=== PATIENT | female | born 1990 | race Caucasian/White ===

== ENCOUNTER 2021-06-25 00:01 | Emergency (ER) | payer OTHER, SELFPAY ==
[2021-06-25 00:02] VITALS: BP 156/104; PULSE 76; RESP 18; TEMP 36.8; O2SAT 99; BMI 32.9
--- NOTE | 2021-06-25 00:32 | HMH.EDDENT ---
ED Disposition Clinical Impression: Pain, dental, Infected dental caries Disposition: Home, Self-Care Condition on Discharge: Good Instructions: DI for Dental Pain Additional Instructions: use meds and see pcp for follow up Prescriptions: clindamycin HCL [Clindamycin HCl] 300 mg PO TID #30 cap Transmission Status: [id number] Ketorolac Tromethamine [Toradol 10mg tablet] 10 mg PO Q6HP PRN #10 tab MDD 40mg/day PRN Reason: Moderate To Severe Pain Transmission Status: [id number] Referrals: Edgar Feliz, [Primary Care Provider] - - Critical Care Critical Care Time: No Attestation: On 06/25/21, the high probability of a clinically significant, sudden or life threatening deterioration of the following system(s) required my full and direct attention, intervention and personal management. The time I documented below is in addition to time spent performing reported procedures but includes the following listed in this critical care notation. Medical Decision Making - Medical Records Medical records reviewed: Yes: I reviewed the patient's medical records. - Wesley Inquiry Pt receiving controlled substance: No Vital Signs: 06/25/21 00:02 Temperature 98.2 F Temperature Source Oral Pulse Rate [Right] 76 Respiratory Rate 18 Blood Pressure [Right Arm] 156/104 H Blood Pressure Mean [Right Arm] 121 02 Sat by Pulse Oximetry 99 - Lab Data Lab results reviewed: Yes: I reviewed the patient's lab results. Orders (Tests/Meds): ED MEDICATIONS Generic Name Dose Route Start Last Admin Trade Name Freq PRN Reason Stop Dose Admin Acetaminophen/Codeine Phosphate 1 magnolia 06/25/21 01:13 Acetaminophen 300mg W/Codeine 30mg Take Home Pack (6) PO 06/25/21 01:14 ONCE ONE Ceftriaxone Sodium 1 gm/ 50 mls @ 100 mls/hr 06/25/21 00:45 06/25/21 01:01 Sodium Chloride IV 07/09/21 00:44 100 mls/hr Q24H JOVANY Administration Protocol Discontinued Medications Generic Name Dose Route Start Last Admin Trade Name Freq PRN Reason Stop Dose Admin Ketorolac Tromethamine 30 mg 06/25/21 00:31 06/25/21 01:01 Ketorolac 30mg/Ml Vial IV 06/25/21 00:32 30 mg ONCE ONE Administration Methylprednisolone Sodium Succinate 125 mg 06/25/21 00:31 06/25/21 01:00 Methylprednisolone Sod Succ 125mg Vial IV 06/25/21 00:32 125 mg ONCE ONE Administration Ondansetron HCl 4 mg 06/25/21 00:31 06/25/21 01:00 Ondansetron 4mg/2ml Vial IV 06/25/21 00:32 4 mg ONCE ONE Administration Medical Decision Narrative: dental infection and will need abx and f/u with dentist Dental HPI - General Chief complaint: Dental/Oral Stated complaint: Pain in Rt side of face and neck Time Seen by Provider: 06/25/21 00:15 Mode of Arrival: Ambulatory Source of Information: Patient, Medical Record Limitations: No Limitations Description of Symptoms (Recalled from ER Triage Doc. by RN): pt c/o rt lower tooth pain since last night - History of Present Illness HPI Narrative: progressive rt lower dental pain over the last few days MD Complaint: tooth pain Onset (ago): day(s) Duration: constant Severity: moderate Context: history of dental caries Associated symptoms: ear pain Treatment prior to arrival: recent dentist visit - Related Data Home Medications Medication Instructions Recorded Confirmed omeprazole magnesium 20 mg 20 mg PO DAILY 09/10/19 12/04/19 tablet,delayed release Metoprolol Succinate 25 mg PO DAILY 12/04/19 12/04/19 Previous Rx's Medication Instructions Recorded Naproxen [Naproxen 500mg tab] 500 mg PO BIDP PRN #20 tab 12/04/19 Phenazopyridine HCl [Pyridium 200 pow PO TID #6 tab 12/04/19 200mg Tablet] Sulfamethoxazole/Trimethoprim 1 each PO BID 7 Days #14 tab 12/04/19 [Bactrim DS tablet] Ketorolac Tromethamine [Toradol 10 mg PO Q6HP PRN #10 tab MDD 06/25/21 10mg tablet] 40mg/day clindamycin HCL [Clindamycin HCl] 3
[2021-06-25 01:44] VITALS: BP 135/82; PULSE 72; RESP 16; TEMP 36.8; O2SAT 99
== END 2021-06-25 01:45 | disposition home or self-care (01) ==
PROVIDERS: Emergency Provider Emergency Medicine; PCP Family Medicine
DX: K04.7 Periapical abscess without sinus (principal); K05.10 Chronic gingivitis, plaque induced; F17.210 Nicotine dependence, cigarettes, uncomplicated; K02.9 Dental caries, unspecified
CPT/HCPCS: 96365; 96375; 99281; J2405

== ENCOUNTER 2021-09-04 19:25 | Emergency (ER) | payer OTHER, SELFPAY ==
[2021-09-04 20:40] VITALS: BP 158/104; PULSE 105; RESP 18; TEMP 36.9; O2SAT 99; BMI 33.0
--- NOTE | 2021-09-04 20:52 | HMH.EDUTC ---
[facility] [place] Disposition Clinical Impression: Viral syndrome, Exposure to COVID-19 virus Pharyngitis Qualifiers: Pharyngitis/tonsillitis etiology: unspecified etiology Qualified Code(s): J02.9 - Acute pharyngitis, unspecified Disposition: Home, Self-Care Condition on Discharge: Good Instructions: DI for COVID-19 (Suspected or Confirmed ), Preventing the Spread of Coronavirus Discharge Instructions Additional Instructions: Drink plenty of fluids. Take tylenol or ibuprofen for pain or fever. Take the medications as directed. Follow up with your regular doctor. GO TO THE ER FOR ANY WORSENING SYMPTOMS Quarantine until you know the results of your covid-19 test. If it is positive, the health department should call you and give you further instructions about your length of Quarantine and other things. Notify your school or workplace of your results and follow their instructions regarding return to work/school. Prescriptions: Brompheniramine/Pseudoephed/Dm [Bromfed Dm Cough Syrup] 5 ml PO Q6HP PRN #240 ml PRN Reason: Cough Transmission Status: Received by [email or web address] #[id number] Amoxicillin [Amoxicillin 500mg Tab] 500 mg PO TID 10 Days #30 tab Transmission Status: Received by [email or web address][id number] Ondansetron [Zofran 4mg ODT] 4 mg PO DAILYP PRN #12 tab PRN Reason: Nausea Transmission Status: Received by [email or web address] #[id number] Referrals: Edgar Feliz DO [Primary Care Provider] - Time of Disposition: 21:12 Medical Decision Making - Medical Records Medical records reviewed: No: I reviewed the patient's medical records. - Wesley Inquiry Pt receiving controlled substance: No Vital Signs: 09/04/21 20:40 09/04/21 21:13 Temperature 98.5 F 98.5 F Temperature Source Oral Pulse Rate 105 H Pulse Rate [Right Brachial] 105 H Respiratory Rate 18 18 Blood Pressure 158/104 H Blood Pressure [Right Arm] 158/104 H Blood Pressure Mean [Right Arm] 122 Blood Pressure Source [Right Arm] Automatic Cuff Blood Pressure Position [Right Arm] Sitting 02 Sat by Pulse Oximetry 99 Oxygen Delivery Method Room Air - Lab Data Lab results reviewed: Yes: I reviewed the patient's lab results. Lab Results 09/04/21 21:12: Strep Scn Rapid Clinic Negative Orders (Tests/Meds): ORDERS Category Date Time Status Covid-19 Nasal PCR ([facility]) Routine Lab 09/04/21 20:43 Received Strep Screen Confirmation Stat Micro 09/04/21 21:12 Received [facility] HPI - General Stated complaint: Diarrhea, sore throat, covid exposed Time Seen by Provider: 09/04/21 20:52 - History of Present Illness Provider Complaint: She c/o sore throat and feeling bad for the past 2 days. She was exposed to covid-19 about 6 days ago. She has nausea and diarrhea also. - Related Data Home Medications Medication Instructions Recorded Confirmed omeprazole magnesium 20 mg 20 mg PO DAILY 09/10/19 12/04/19 tablet,delayed release Metoprolol Succinate 25 mg PO DAILY 12/04/19 12/04/19 Previous Rx's Medication Instructions Recorded Naproxen [Naproxen 500mg tab] 500 mg PO BIDP PRN #20 tab 12/04/19 Phenazopyridine HCl [Pyridium 200 pow PO TID #6 tab 12/04/19 200mg Tablet] Sulfamethoxazole/Trimethoprim 1 each PO BID 7 Days #14 tab 12/04/19 [Bactrim DS tablet] Ketorolac Tromethamine [Toradol 10 mg PO Q6HP PRN #10 tab MDD 06/25/21 10mg tablet] 40mg/day clindamycin HCL [Clindamycin HCl] 300 mg PO TID #30 cap 06/25/21 Amoxicillin [Amoxicillin 500mg Tab] 500 mg PO TID 10 Days #30 tab 09/04/21 Brompheniramine/Pseudoephed/Dm 5 ml PO Q6HP PRN #240 ml 09/04/21 [Bromfed Dm Cough Syrup] Ondansetron [Zofran 4mg ODT] 4 mg PO DAILYP PRN #12 tab 09/04/21 Allergies Allergy/AdvReac Type Severity Reaction Status Date / Time No Known Allergies Allergy Verified 09/04/21 21:04 [facility] History - Hepatitis A Screen Attestation statement:: This patient has been screened for Hepatitis A risk factors. I have reviewed the
[2021-09-04 21:13] VITALS: BP 158/104; PULSE 105; RESP 18; TEMP 36.9; O2SAT 99
[2021-09-04 21:13] LABS: UTC Strep Screen (Rapid) Negative (Negative)
== END 2021-09-04 21:24 | disposition home or self-care (01) ==
PROVIDERS: Emergency Provider Nurse Practitioner Family; PCP Family Medicine
DX: B34.9 Viral infection, unspecified (principal); Z20.822 Contact with and (suspected) exposure to COVID-19; I10 Essential (primary) hypertension; F17.210 Nicotine dependence, cigarettes, uncomplicated
CPT/HCPCS: 87880; 99203; C9803; G0463; U0003; U0005

== ENCOUNTER → 2021-12-29 15:38 | Outpatient (CLI) | payer OTHER, SELFPAY | PROVIDERS: Visit Provider Nurse Practitioner | DX: Z20.822 Contact with and (suspected) exposure to COVID-19 (principal) | CPT/HCPCS: C9803; U0003; U0005 ==

== ENCOUNTER 2022-01-31 09:20 | Emergency (ER) | payer OTHER, SELFPAY ==
[2022-01-31 10:56] VITALS: BP 138/96; PULSE 97; RESP 16; TEMP 36.9; O2SAT 95; BMI 32.1
--- NOTE | 2022-01-31 10:58 | HMH.EDUTC ---
[facility] [place] Clinical Impression: Viral syndrome, Bronchitis Disposition: Home, Self-Care Condition on Discharge: Good Instructions: DI for COVID-19 (Suspected or Confirmed ), Preventing the Spread of Coronavirus Discharge Instructions Additional Instructions: Drink plenty of fluids. Take tylenol or ibuprofen for pain or fever. Take the medications as directed. Follow up with your regular doctor. GO TO THE ER FOR ANY WORSENING SYMPTOMS Quarantine until you know the results of your covid-19 test. Notify your school or workplace of your results and follow their instructions regarding return to work/school. Prescriptions: Brompheniramine/Pseudoephed/Dm [Bromfed Dm Cough Syrup] 5 ml PO Q6HP PRN #240 ml PRN Reason: Cough Transmission Status: Received by [facility]/pharmacy #[id number] Ondansetron [Zofran 4mg ODT] 4 mg PO Q8HP PRN #20 tab PRN Reason: Nausea Transmission Status: [id number] Azithromycin [Z-Juaquin 250mg Tab*] 250 mg PO UD DOSE PK #6 tab Transmission Status: Received by [facility]/pharmacy #[id number] Referrals: Edgar Feliz DO [Primary Care Provider] - Forms: Work/School Release Time of Disposition: 12:05 Medical Decision Making - Medical Records Medical records reviewed: No: I reviewed the patient's medical records. - Wesley Inquiry Pt receiving controlled substance: No Vital Signs: 01/31/22 10:56 01/31/22 12:22 Temperature 98.5 F 98.5 F Temperature Source Oral Pulse Rate 97 H Pulse Rate [Left] 97 H Respiratory Rate 16 16 Blood Pressure 138/96 H Blood Pressure [Right Arm] 138/96 H Blood Pressure Mean [Right Arm] 110 02 Sat by Pulse Oximetry 95 - Lab Data Lab results reviewed: Yes: I reviewed the patient's lab results. Lab Results 01/31/22 10:54: Influenza Type A Ag Negative, Influenza Type B Ag Negative 01/31/22 10:54: Strep Scn Rapid Clinic Negative Orders (Tests/Meds): ORDERS Category Date Time Status Strep Screen Confirmation Stat Micro 01/31/22 10:54 Received [facility] [place] HPI - General Stated complaint: congestion, tightness, diarrhea, fever, vomiting Time Seen by Provider: 01/31/22 10:58 - History of Present Illness Provider Complaint: She c/o sore throat, fever, chills, and a cough for the past 2 days. - Related Data Home Medications Medication Instructions Recorded Confirmed omeprazole magnesium 20 mg 20 mg PO DAILY 09/10/19 12/04/19 tablet,delayed release Metoprolol Succinate 25 mg PO DAILY 12/04/19 12/04/19 Previous Rx's Medication Instructions Recorded Naproxen [Naproxen 500mg tab] 500 mg PO BIDP PRN #20 tab 12/04/19 Phenazopyridine HCl [Pyridium 200 pow PO TID #6 tab 12/04/19 200mg Tablet] Sulfamethoxazole/Trimethoprim 1 each PO BID 7 Days #14 tab 12/04/19 [Bactrim DS tablet] Ketorolac Tromethamine [Toradol 10 mg PO Q6HP PRN #10 tab MDD 06/25/21 10mg tablet] 40mg/day clindamycin HCL [Clindamycin HCl] 300 mg PO TID #30 cap 06/25/21 Amoxicillin [Amoxicillin 500mg Tab] 500 mg PO TID 10 Days #30 tab 09/04/21 Brompheniramine/Pseudoephed/Dm 5 ml PO Q6HP PRN #240 ml 09/04/21 [Bromfed Dm Cough Syrup] Ondansetron [Zofran 4mg ODT] 4 mg PO DAILYP PRN #12 tab 09/04/21 Azithromycin [Z-Juaquin 250mg Tab*] 250 mg PO UD DOSE PK #6 tab 01/31/22 Brompheniramine/Pseudoephed/Dm 5 ml PO Q6HP PRN #240 ml 01/31/22 [Bromfed Dm Cough Syrup] Ondansetron [Zofran 4mg ODT] 4 mg PO Q8HP PRN #20 tab 01/31/22 Allergies Allergy/AdvReac Type Severity Reaction Status Date / Time No Known Allergies Allergy Verified 09/04/21 21:04 [facility] History - Hepatitis A Screen Attestation statement:: This patient has been screened for Hepatitis A risk factors. I have reviewed the patient's past medical history: Yes Medical History: Reports:: Hypertension Other Surgeries: Yes: , Tubal Ligation Amputation: No Fractures: No - Social History Smoking Status: Current every day smoker # Packs/Day (cig
[2022-01-31 11:15] LABS: UTC Influenza A Antigen Negative (Negative); UTC Influenza B Antigen Negative (Negative); UTC Strep Screen (Rapid) Negative (Negative)
[2022-01-31 12:22] VITALS: BP 138/96; PULSE 97; RESP 16; TEMP 36.9
== END 2022-01-31 12:23 | disposition home or self-care (01) ==
PROVIDERS: Emergency Provider Nurse Practitioner Family; PCP Family Medicine
DX: J20.9 Acute bronchitis, unspecified (principal); B34.9 Viral infection, unspecified; I10 Essential (primary) hypertension
CPT/HCPCS: 87804; 87880; 99212; C9803; G0463; U0003; U0005

== ENCOUNTER 2022-12-20 10:45 | Emergency (ER) | payer BC, OTHER, SELFPAY ==
[2022-12-20 11:00] VITALS: BP 133/90; PULSE 79; RESP 20; TEMP 36.9; O2SAT 99; BMI 30.7
--- NOTE | 2022-12-20 11:18 | EXP.UTC ---
Discharge Plan Disposition Patient Disposition: Home, Self-Care Condition: Good Prescriptions Prescriptions: New azithromycin [Zithromax] 250 mg tablet 250 mg PO UD DOSE PK Qty: 6 0RF Rx Instructions: Take two (2) tablets today, then one (1) tablet days #2 thru #5 benzonatate [benzonatate] 100 mg capsule 100 mg PO TIDP PRN (Reason: Cough) Qty: 30 0RF methylprednisolone 4 mg Tablets,Dose Pack 4 mg PO DIRECTED Qty: 21 0RF No Action metoprolol succinate 25 MG tablet extended release 24 hr 25 mg PO DAILY phenazopyridine 200 MG tablet 200 pow PO TID Qty: 6 0RF sulfamethoxazole-trimethoprim 1 EACH tablet 1 each PO BID 7 Days Qty: 14 0RF naproxen 500 MG tablet 500 mg PO BIDP PRN (Reason: Moderate Pain) Qty: 20 0RF clindamycin HCl 300 MG capsule 300 mg PO TID Qty: 30 0RF ketorolac 10 MG tablet 10 mg PO Q6HP MDD 40mg/day PRN (Reason: Moderate To Severe Pain) Qty: 10 0RF Rx Instructions: Therapy initiated with IV/IM dose amoxicillin 500 MG tablet 500 mg PO TID 10 Days Qty: 30 0RF [id number] 118 ML syrup 5 ml PO Q6HP PRN (Reason: Cough) Qty: 240 0RF ondansetron 4 MG tablet,disintegrating 4 mg PO DAILYP PRN (Reason: Nausea) Qty: 12 0RF azithromycin 250 MG tablet 250 mg PO UD DOSE PK Qty: 6 0RF Rx Instructions: Take two (2) tablets today, then one (1) tablet days #2 thru #5 [id number] 118 ML syrup 5 ml PO Q6HP PRN (Reason: Cough) Qty: 240 0RF ondansetron 4 MG tablet,disintegrating 4 mg PO Q8HP PRN (Reason: Nausea) Qty: 20 0RF Referrals Follow up/Referrals: Edgar Feliz, [Primary Care Provider] - See instructions Activity Restrictions/Add. Instructions Additional Instructions/Restrictions: Drink plenty of fluids. Take tylenol or ibuprofen for pain or fever. Take the medications as directed. Follow up with your regular doctor. GO TO THE ER FOR ANY WORSENING SYMPTOMS Clinical Impressions Clinical Impression: Pharyngitis, Bronchitis Stand Alone Forms Stand Alone Forms: Work/School Release Instructions Patient Instructions: DI for Pharyngitis/Tonsillopharyngitis -- Adult, DI for Acute Bronchitis Discharge ED Provider: Bunny Laws [facility] [place] HPI General Stated complaint: Sore throat Time Seen by Provider: 12/20/22 11:18 History of Present Illness Provider Complaint: She states that for the past 2 days she has had sore throat, chills, body aches and low grade fever. Related Data Home Medications Medication Instructions Recorded Confirmed omeprazole magnesium 20 mg 20 mg PO DAILY GERD 09/10/19 12/04/19 tablet,delayed release (Prilosec OTC) metoprolol succinate 25 mg 25 mg PO DAILY Hypertension 12/04/19 12/04/19 tablet,extended release 24 hr Previous Rx's Medication Instructions Recorded naproxen 500 mg tablet 500 mg PO BIDP PRN Moderate Pain 12/04/19 #20 tabs phenazopyridine 200 mg tablet 200 pow PO TID #6 tabs 12/04/19 sulfamethoxazole 800 1 each PO BID 7 days #14 tabs 12/04/19 mg-trimethoprim 160 mg tablet clindamycin HCl 300 mg capsule 300 mg PO TID #30 caps 06/25/21 ketorolac 10 mg tablet 10 mg PO Q6HP PRN Moderate To 06/25/21 Severe Pain #10 tabs amoxicillin 500 mg tablet 500 mg PO TID 10 days #30 tabs 09/04/21 [id number] 5 ml PO Q6HP PRN Cough #240 mL 09/04/21 2 mg-30 mg-10 mg/5 mL oral syrup ondansetron 4 mg disintegrating 4 mg PO DAILYP PRN Nausea #12 tabs 09/04/21 tablet azithromycin 250 mg tablet 250 mg PO UD DOSE PK #6 tabs 01/31/22 [id number]-cvunpqhpaiemwwb-[id number] 5 ml PO Q6HP PRN Cough #240 mL 01/31/22 2 mg-30 mg-10 mg/5 mL oral syrup ondansetron 4 mg disintegrating 4 mg PO Q8HP PRN Nausea #20 tabs 01/31/22 tablet azithromycin 250 mg tablet 250 mg PO UD DOSE PK #6 tabs 12/20/22 (Zithromax) benzonatate 100 mg capsule 100 mg PO TIDP PRN Cough #30 caps 12/20/22 methylprednisolone 4 mg
[2022-12-20 11:45] LABS: UTC Strep Screen (Rapid) Negative (Negative)
[2022-12-20 12:08] VITALS: BP 133/90; PULSE 79; RESP 20; TEMP 36.9; O2SAT 99
== END 2022-12-20 12:05 | disposition home or self-care (01) ==
PROVIDERS: Emergency Provider Nurse Practitioner Family; PCP Family Medicine
DX: J40 Bronchitis, not specified as acute or chronic (principal)
CPT/HCPCS: 87880; 99212; 99213; C9803; G0463; U0003; U0005

== ENCOUNTER 2023-02-19 17:23 | Emergency (ER) | payer BC, OTHER, SELFPAY ==
[2023-02-19 18:00] VITALS: BP 176/96; PULSE 93; RESP 20; TEMP 37.1; O2SAT 99; BMI 30.3
[2023-02-19 18:21] LABS: UTC Strep Screen (Rapid) Positive (Negative)
--- NOTE | 2023-02-19 18:22 | EXP.UTC ---
Discharge Plan Disposition Patient Disposition: Home, Self-Care Condition: Good Prescriptions Prescriptions: New prednisone 10 mg tablet 10 mg PO BID 3 Days Qty: 6 0RF amoxicillin [amoxicillin] 500 mg tablet 500 mg PO TID 10 Days Qty: 30 0RF benzonatate [benzonatate] 100 mg capsule 100 mg PO TIDP PRN (Reason: Cough) Qty: 30 0RF No Action metoprolol succinate 25 MG tablet extended release 24 hr 25 mg PO DAILY naproxen 500 MG tablet 500 mg PO BIDP PRN (Reason: Moderate Pain) Qty: 20 0RF ketorolac 10 MG tablet 10 mg PO Q6HP MDD 40mg/day PRN (Reason: Moderate To Severe Pain) Qty: 10 0RF Rx Instructions: Therapy initiated with IV/IM dose Referrals Follow up/Referrals: Edgar Feliz DO [Primary Care Provider] - See instructions Activity Restrictions/Add. Instructions Additional Instructions/Restrictions: Drink plenty of fluids. Take tylenol or ibuprofen for pain or fever. Take the medications as directed. Follow up with your regular doctor. GO TO THE ER FOR ANY WORSENING SYMPTOMS Throw your tooth brush away and get a new one. Clinical Impressions Clinical Impression: Strep throat Stand Alone Forms Stand Alone Forms: Work/School Release Instructions Patient Instructions: DI for Strep Throat Discharge ED Provider: Abdoul Laws [facility] General Stated complaint: poss strep throat Mode of Arrival: Ambulatory Source of Information: Patient Limitations: No Limitations Time Seen by Provider: 02/19/23 18:21 Description of Symptoms (Recalled from Triage Doc. by RN): sore throat, swollen tonsils, kids just had strep throat HEENT Symptoms (Recalled from RN notes): Yes Resp Symptoms (Recalled from RN notes): No Skin Symptoms (Recalled from RN notes): No MS Symptoms (Recalled from RN notes): No Functional Status (Recalled from RN notes): n/a History of Present Illness Provider Complaint: She states that she has had sore throat, chills, low grade fever and malaise since yesterday. Related Data Home Medications Medication Instructions Recorded Confirmed omeprazole magnesium 20 mg 20 mg PO DAILY GERD 09/10/19 12/04/19 tablet,delayed release (Prilosec OTC) metoprolol succinate 25 mg 25 mg PO DAILY Hypertension 12/04/19 12/04/19 tablet,extended release 24 hr Previous Rx's Medication Instructions Recorded naproxen 500 mg tablet 500 mg PO BIDP PRN Moderate Pain 12/04/19 #20 tabs ketorolac 10 mg tablet 10 mg PO Q6HP PRN Moderate To 06/25/21 Severe Pain #10 tabs amoxicillin 500 mg tablet 500 mg PO TID 10 days #30 tabs 02/19/23 benzonatate 100 mg capsule 100 mg PO TIDP PRN Cough #30 caps 02/19/23 prednisone 10 mg tablet 10 mg PO BID 3 days #6 tabs 02/19/23 Allergies Allergy/AdvReac Type Severity Reaction Status Date / Time No Known Allergies Allergy Verified 02/19/23 18:21 Worker's Comp Is this a Worker's Comp case?: No [facility] Disclaimer: The information contained in this section may have been updated after the patient was seen, as this information can be updated by other users. Social History Smoking Status: Current every day smoker alcohol intake: never substance use type: denies use current occupational status: employed Travel in the last 8 weeks: None household members: family housing: house ROS Obtained: Yes All systems reviewed & no additional complaints except as documented Constitutional Constitutional: Reports chills and Reports fever(s) Eyes Eyes: Denies eye discharge ENT Ears, Nose, Mouth, and Throat: Reports as per HPI Cardiovascular Cardiovascular: Denies chest pain Respiratory Respiratory: Denies chest congestion and Reports cough Gastrointestinal Gastrointestingal: Reports nausea; Denies abdominal pain, constipation, cramping, diarrhea or vomiting Musculoskeletal Musculoskeletal: Denies arthralgias Integumentary/Breasts Skin/Breast:
[2023-02-19 19:07] VITALS: BP 176/96; PULSE 93; RESP 20; TEMP 37.1; O2SAT 99
== END 2023-02-19 19:08 | disposition home or self-care (01) ==
PROVIDERS: Emergency Provider Nurse Practitioner Family; PCP Family Medicine
DX: J02.0 Streptococcal pharyngitis (principal); R53.81 Other malaise; R50.9 Fever, unspecified; F17.200 Nicotine dependence, unspecified, uncomplicated
CPT/HCPCS: 87880; 99212; 99214; G0463

== ENCOUNTER 2023-03-12 14:09 | Emergency (ER) | payer BC, OTHER, SELFPAY ==
[2023-03-12 14:10] VITALS: BP 131/74; PULSE 86; RESP 20; TEMP 36.8; O2SAT 99; BMI 29.4
--- NOTE | 2023-03-12 14:13 | XR_ITS ---
FINAL REPORT CLINICAL HISTORY: FALL FINDINGS: RIGHT SHOULDER Three views demonstrate no acute fracture or dislocation. There is mild elevation of the distal clavicle. Mild acromioclavicular joint separation cannot be excluded. The visualized bony structures are well aligned. No soft tissue abnormality is seen. IMPRESSION: Mild elevation of the distal clavicle, mild acromioclavicular joint separation cannot be excluded. Reviewed, Interpreted and Dictated by Glenn Rai III, MD Transcribed by Namrata Gibbs Authenticated and [facility]
--- NOTE | 2023-03-12 14:42 | EXP.UTC ---
Discharge Plan Disposition Patient Disposition: Home, Self-Care Condition: Good Prescriptions Prescriptions: New methocarbamol 500 mg tablet 500 mg PO BID PRN (Reason: muscle spasm) Qty: 12 0RF No Action Prilosec OTC 20 mg tablet,delayed release (DR/EC) 20 mg PO DAILY metoprolol succinate 25 MG tablet extended release 24 hr 25 mg PO DAILY duloxetine 60 mg capsule,delayed release(DR/EC) 60 mg PO DAILY Referrals Follow up/Referrals: Albert San DO [Staff Physician] - See instructions (Call office for appointment) Provider,Referral, [Primary Care Provider] - See instructions Activity Restrictions/Add. Instructions Additional Instructions/Restrictions: *RICE, Rest the extremity, Ice 15-20 minutes 3-4 times daily, Compress- wear the rajwinder wrap as discussed as much as possible to help reduce swelling and pain, Elevate the extremity when at rest *Sling is for support and help control swelling, use it except in the shower. Be sure that is not to tight but not to loose either *Elevate when resting? *Ibuprofen 600-800mg every 6-8 hours as needed for pain an inflammation. If need something more can take Tylenol in between doses of Ibuprofen to help Immediately follow up with your family doctor for new or worsening of symptoms, or no noticeable improvement over the next 3-5 days *Ibuprofen tammi 6 hours with meal as needed for pain/inflammation *Not additional anti-inflammatory like motrin, aleve, advil with the above amount of ibuprofen. You can still take Tylenol every 4 hours as needed if you need something else for pain *moist heat every 20 minutes 3-4 times a day to affected area *Muscle relaxer every 12 hours as needed for muscle spasms but remember, it WILL cause drowsiness You cannot take it and Work, drive, operate machinery or care for small children. *Keep this area active, no movement leads to more stiffness, However take it easy and avoid heavy lifting pushing or pulling *Follow up with you family doctor if no improvement for further treatment ?Call and make appointment with Orthopedics? Clinical Impressions Clinical Impression: Injury of shoulder Qualifiers: Encounter type: initial encounter Laterality: right Qualified Code(s): S49.91XA - Unspecified injury of right shoulder and upper arm, initial encounter Stand Alone Forms Stand Alone Forms: Work/School Release Instructions Patient Instructions: DI for Shoulder Pain, DI for Muscle Spasm Discharge ED Provider: Crys Parra [facility] General Stated complaint: Fall 03/02 RT shoulder pain Mode of Arrival: Ambulatory Source of Information: Patient Limitations: No Limitations Time Seen by Provider: 03/12/23 14:42 Description of Symptoms (Recalled from Triage Doc. by RN): back, shoulder pain. Fell outside two weeks ago HEENT Symptoms (Recalled from RN notes): No Resp Symptoms (Recalled from RN notes): No Skin Symptoms (Recalled from RN notes): No MS Symptoms (Recalled from RN notes): Yes Functional Status (Recalled from RN notes): n/a History of Present Illness Provider Complaint: Patient states that she fell outside a couple weeks ago while playing with her kids out side and hurt her right shoulder States that now she is having spasms in her shoulder and feels like she may have pulled something and at times it will shoot pain down her arm Related Data Home Medications Medication Instructions Recorded Confirmed omeprazole magnesium 20 mg 20 mg PO DAILY GERD 09/10/19 03/12/23 tablet,delayed release (Prilosec OTC) metoprolol succinate 25 mg 25 mg PO DAILY Hypertension 12/04/19 03/12/23 tablet,extended release 24 hr duloxetine 60 mg capsule,delayed 60 mg PO DAILY Depression 03/12/23 03/12/23 release Previous Rx's Medication Instructions Recorded methocarbamol 500 mg tablet 500 mg PO BID PRN muscle spasm #12 03/12/23 tabs Allergies Allergy/AdvReac Type Severity Reaction St
[2023-03-12 16:07] VITALS: BP 131/74; PULSE 86; RESP 20; TEMP 36.8; O2SAT 99
== END 2023-03-12 16:07 | disposition home or self-care (01) ==
PROVIDERS: Emergency Provider Nurse Practitioner
DX: S49.91XA Unspecified injury of right shoulder and upper arm, initial encounter (principal); F17.210 Nicotine dependence, cigarettes, uncomplicated; W19.XXXA Unspecified fall, initial encounter
CPT/HCPCS: 73030; 99212; 99214; G0463

== ENCOUNTER → 2023-03-21 16:04 | Outpatient (CLI) | payer BC, OTHER, SELFPAY ==
[2023-03-21 14:46] LABS: Basophils # 0.1 K/mm3 (0-0.2); Basophils % 0.5 % (0.1-2.0); Eosinophils # 0.1 K/mm3 (0.0-0.4); Eosinophils % 1.1 % (0.1-12.0); Hematocrit 46.4 % (37.0-47.0); Hemoglobin 15.2 g/dL (12.2-16.2); Lymphocytes # 1.6 K/mm3 (0.7-4.5); Lymphocytes % 17.1 % (10-50); Mean Corpuscular HGB Conc 32.8 g/dL (31.8-35.4); Mean Corpuscular Hemoglobin 30.2 pg (27.0-31.2); Mean Platelet Volume 10.4 fl (7.4-10.4); Monocytes # 0.4 K/mm3 (0.1-1.0); Monocytes % 3.9 % (1.7-9.3); Neutrophils % 77.3 % (37.0-80.0); Platelet Count 230 K/mm3 (142-424); Red Blood Count 5.04 M/mm3 (4.20-5.40); Red Cell Distribution Width 12.3 % (11.5-17.5); White Blood Count 9.1 K/mm3 (4.8-10.8)
[2023-03-21 15:01] LABS: Alanine Aminotransferase 16 U/L (12-78); Albumin Level 4.1 g/dl (3.5-5.0); Albumin/Globulin Ratio 1.7 (1.1-1.8); Alkaline Phosphatase 77 U/L (38-126); Anion Gap 10.4 mEq/L (5-15); Aspartate Amino Transferase 19 U/L (14-36); Bilirubin,Total 0.5 mg/dl (0.2-1.3); Blood Urea Nitrogen 8 mg/dl (7-17); Calcium 8.8 mg/dl (8.4-10.2); Carbon Dioxide 29 mmol/L (22.0-30.0); Chloride 104 mmol/L (98-107); Cholesterol 141 mg/dl (140-200); Estimated Glomerular Filt Rate 116 ml/min (>60); GFR (African American) 140 ML/MIN (>60); Globulin 2.4 g/dL (1.3-3.2); Glucose 94 mg/dl (74-100); HDL Cholesterol 47 mg/dl (40-60); Potassium 4.4 mmoL/L (3.5-5.1); Sodium 139 mmol/L (136-145); Total Protein,Serum 6.5 g/dl (6.3-8.2); Triglycerides 121 mg/dl (30-150); VLDL Cholesterol 24 mg/dL (0-40)
[2023-03-21 15:12] LABS: Direct LDL Cholesterol 77.13 mg/dL (100-129)
== END ==
PROVIDERS: PCP Family Medicine; Visit Provider Family Medicine
DX: Z76.89 Persons encountering health services in other specified circumstances (principal); R03.0 Elevated blood-pressure reading, without diagnosis of hypertension; K21.9 Gastro-esophageal reflux disease without esophagitis; Z72.0 Tobacco use; Z86.39 Personal history of other endocrine, nutritional and metabolic disease; Z79.899 Other long term (current) drug therapy
CPT/HCPCS: 80053; 80061; 85025

== ENCOUNTER 2023-12-18 17:43 | Emergency (ER) | payer OTHER, SELFPAY ==
[2023-12-18 18:20] VITALS: BP 140/90; PULSE 83; RESP 18; TEMP 37.1; O2SAT 99; BMI 31.1
--- NOTE | 2023-12-18 18:31 | ED_ITS ---
Discharge Plan Disposition Patient Disposition: Home, Self-Care Condition: Good Prescriptions Prescriptions: New ncbglqxezjsuxva-nqmulveai-GC [Bromfed DM] 2-30-10 mg/5 mL Syrup 5 ml PO Q6H PRN (Reason: Cough) Qty: 240 0RF ondansetron 4 mg Tablet,Disintegrating 4 mg PO Q8H PRN (Reason: Nausea) Qty: 12 0RF No Action escitalopram oxalate [Lexapro] 20 mg tablet 20 mg PO DAILY Qty: 90 3RF buspirone 10 mg tablet 10 mg PO TID PRN (Reason: anxiety) Qty: 90 3RF Prilosec OTC 20 mg tablet,delayed release (DR/EC) 20 mg PO DAILY Qty: 90 3RF Referrals Follow up/Referrals: Edgar Feliz DO [Primary Care Provider] - See instructions Activity Restrictions/Add. Instructions Additional Instructions/Restrictions: Drink plenty of fluids. Take tylenol or ibuprofen for pain or fever. Take the medications as directed. Follow up with your regular doctor. GO TO THE ER FOR ANY WORSENING SYMPTOMS Clinical Impressions Clinical Impression: Acute viral syndrome, COVID-19 Stand Alone Forms Stand Alone Forms: Work/School Release Instructions Patient Instructions: Coronavirus Disease 2019, Preventing the Spread of Coronavirus Discharge Instructions Discharge ED Provider: Abdoul Laws [facility] [place] HPI General Stated complaint: Body aches,cough,Home + Covid test Time Seen by Provider: 12/18/23 18:31 History of Present Illness Provider Complaint: She states that for the past 1 day she has had fever, chills, body aches, malaise, and a cough. She tested positive on a home covid-19 test today. Related Data Previous Rx's Medication Instructions Recorded omeprazole magnesium 20 mg 20 mg PO DAILY GERD #90 tabs 06/26/23 tablet,delayed release (Prilosec OTC) buspirone 10 mg tablet 10 mg PO TID PRN anxiety #90 tabs 07/19/23 escitalopram oxalate 20 mg tablet 20 mg PO DAILY #90 tabs 07/19/23 (Lexapro) ezmlnilvdamkgls-mwvfmnhejyxdeot-KT 5 ml PO Q6H PRN Cough #240 mL 12/18/23 2 mg-30 mg-10 mg/5 mL oral syrup (Bromfed DM) ondansetron 4 mg disintegrating 4 mg PO Q8H PRN Nausea #12 tabs 12/18/23 tablet Allergies Allergy/AdvReac Type Severity Reaction Status Date / Time No Known Allergies Allergy Verified 12/18/23 18:43 [facility] Disclaimer: The information contained in this section may have been updated after the patient was seen, as this information can be updated by other users. Medical History Anxiety Depression Hypertension Manic depressive disorder UTI (urinary tract infection) Surgical History delivery delivered Social History Smoking Status: Current every day smoker alcohol intake: never substance use type: denies use current occupational status: employed Travel in the last 8 weeks: None household members: family housing: house ROS Obtained: Yes All systems reviewed & no additional complaints except as documented Constitutional Constitutional: Reports chills and Reports fever(s) Eyes Eyes: Denies eye discharge ENT Ears, Nose, Mouth, and Throat: Reports as per HPI Cardiovascular Cardiovascular: Denies chest pain Respiratory Respiratory: Denies chest congestion and Reports cough Gastrointestinal Gastrointestingal: Reports nausea; Denies abdominal pain, constipation, cramping, diarrhea or vomiting Musculoskeletal Musculoskeletal: Denies arthralgias Integumentary/Breasts Skin/Breast: Denies rash Neurologic Neurologic: Denies paresthesias Physical Exam General General appearance: alert and in no apparent distress Head Head exam: atraumatic, normocephalic and normal inspection Eye Eye exam: Present normal appearance, PERRL and EOMI ENT ENT exam: Present mucous membranes moist and normal external ear exam Expanded ENT Exam TM/Canal exam: Bilateral TM: erythema and bulging Nose exam: Absent sinus tenderness Mouth exam: Present normal external inspection; Absent drooling Teeth exam: Present normal inspection Throat exam: Present tonsillar erythema, tonsillomegaly and tonsillar exudate Neck Neck exam: Present normal inspection, full ROM and trachea midline; Absent tenderness, meningismus or lymphadenopathy Chest Chest inspection: Present normal inspection and symmetric chest wall rise; Absent tenderness Respiratory Respiratory exam: Present normal lung sounds bilaterally; Absent respiratory distress, wheezes or stridor Cardiovascular Cardiovascular exam: Present regular rate and normal rhythm; Absent systolic murmur or diastolic murmur Abdominal Exam Abdominal exam: Present soft and normal bowel sounds; Absent distention, tenderness, guarding, rebound or rigidity Extremities Exam Extremities exam: Present normal inspection and normal capillary refill; Absent calf tenderness Back Exam Back exam: Present normal inspection and full ROM; Absent tenderness, CVA tenderness (R) or CVA tenderness (L) Neurological Exam Neurological exam: Present alert, oriented X3 and CN II-XII intact Psychiatric Psychiatric exam: Present normal affect and normal mood Skin Skin exam: Present warm, dry, intact and normal color Medical Decision Making Medical Records Medical records reviewed: No I reviewed the patient's medical records. Wesley Inquiry Pt receiving controlled substance: No Lab Data Lab results reviewed: Yes I reviewed the patient's lab results.
[2023-12-18 18:49] LABS: UTC Influenza A Antigen Negative (Negative); UTC Influenza B Antigen Negative (Negative)
[2023-12-18 18:52] VITALS: BP 140/90; PULSE 83; RESP 18; TEMP 37.1; O2SAT 99
== END 2023-12-18 18:51 | disposition home or self-care (01) ==
PROVIDERS: Emergency Provider Nurse Practitioner Family; PCP Family Medicine
DX: U07.1 COVID-19; R50.9 Fever, unspecified; R05.9 Cough, unspecified; R53.81 Other malaise; M79.18 Myalgia, other site; F17.210 Nicotine dependence, cigarettes, uncomplicated
CPT/HCPCS: 87635; 87804; 99212; 99214; G0463

== ENCOUNTER 2024-01-13 17:08 | Emergency (ER) | payer OTHER, SELFPAY ==
[2024-01-13 18:05] VITALS: BP 137/100; PULSE 80; RESP 20; TEMP 37; O2SAT 100; BMI 29.0
--- NOTE | 2024-01-13 18:32 | ED_ITS ---
Discharge Plan Disposition Patient Disposition: Home, Self-Care Condition: Good Prescriptions Prescriptions: New amoxicillin 500 mg capsule 500 mg PO BID 10 Days Qty: 20 0RF No Action escitalopram oxalate [Lexapro] 20 mg tablet 20 mg PO DAILY Qty: 90 3RF buspirone 10 mg tablet 10 mg PO TID PRN (Reason: anxiety) Qty: 90 3RF Prilosec OTC 20 mg tablet,delayed release (DR/EC) 20 mg PO DAILY Qty: 90 3RF pmeptisrjpexzbx-cdkuhlbqp-IV [Bromfed DM] 2-30-10 mg/5 mL Syrup 5 ml PO Q6H PRN (Reason: Cough) Qty: 240 0RF ondansetron 4 mg Tablet,Disintegrating 4 mg PO Q8H PRN (Reason: Nausea) Qty: 12 0RF Referrals Follow up/Referrals: Edgar Feliz DO [Primary Care Provider] - See instructions Activity Restrictions/Add. Instructions Additional Instructions/Restrictions: *Monitor Temp, Over the counter Motrin or Tylenol as directed/as needed Tylenol every 4 hours and Motrin every 6 hours (as long as your family doctor has told you that you can take it) for fever or pain. and straight to ER if unable to lower temp less than 101.0 after medication given *Warm salt water gargles may help to soothe the throat *Throat Lozenges? *Warm fluids like tea with honey may help to soothe the throat? *Sleep elevated *Humidifier/Vaporizer * *If you did not take Penicillin shot or was unable to, start taking antibiotic immediately and make sure that you take it for the FULL length of time although you should start to feel better in 24-48 hours *change toothbrush and toothpaste 24-48 hours after starting to take antibiotics so you do not reinfect yourself Monitor Temp. Tylenol and/or Ibuprofen as needed. ER if fever is no less than 101 despite alternating Tylenol and Ibuprofen * Encourage fluids, water, Gatorade, powerade, pedialyte if infant/toddler/or child *Cold fluids, popsicles and ice cream may feel good on his throat Follow up IMMEDIATELY for new or worsening symptoms or no Noticeable improvement over the next 48-72 hours. 911 for difficulty breathing or swallowing Clinical Impressions Clinical Impression: Strep throat Instructions Patient Instructions: DI for Strep Throat, Strep Throat, Amoxicillin Discharge ED Provider: Crys Parra [facility] [place] HPI General Stated complaint: COFFEY, cough, body aches Mode of Arrival: Ambulatory Source of Information: Patient Limitations: No Limitations Time Seen by Provider: 01/13/24 18:32 Description of Symptoms (Recalled from Triage Doc. by RN): PATIENT C/O COUGH, CONGESTION, BODY ACHES, CHILLS, SORE THROAT AND HEADACHE HEENT Symptoms (Recalled from RN notes): Yes Resp Symptoms (Recalled from RN notes): Yes Skin Symptoms (Recalled from RN notes): No MS Symptoms (Recalled from RN notes): No Functional Status (Recalled from RN notes): WNL History of Present Illness Provider Complaint: Patient states that she has been having sorethroat, body aches, headache, chills, nasal congestion and cough States that today she was feeling worse so she came in to get checked Related Data Previous Rx's Medication Instructions Recorded omeprazole magnesium 20 mg 20 mg PO DAILY GERD #90 tabs 06/26/23 tablet,delayed release (Prilosec OTC) buspirone 10 mg tablet 10 mg PO TID PRN anxiety #90 tabs 07/19/23 escitalopram oxalate 20 mg tablet 20 mg PO DAILY #90 tabs 07/19/23 (Lexapro) dfdnpuinbsmrgpz-bervdyzxukgtigi-GW 5 ml PO Q6H PRN Cough #240 mL 12/18/23 2 mg-30 mg-10 mg/5 mL oral syrup (Bromfed DM) ondansetron 4 mg disintegrating 4 mg PO Q8H PRN Nausea #12 tabs 12/18/23 tablet amoxicillin 500 mg capsule 500 mg PO BID 10 days #20 caps 01/13/24 Allergies Allergy/AdvReac Type Severity Reaction Status Date / Time No Known Allergies Allergy Verified 12/18/23 18:43 Worker's Comp Is this a Worker's Comp case?: No [facility] Disclaimer: The information contained in this section may have been updated after the patient was seen, as this information can be updated by other users. Medical History (Updated 01/13/24 @ 18:36 by Crys Parra APRN) Anxiety Depression Hypertension Manic depressive disorder UTI (urinary tract infection) Surgical History delivery delivered Social History Smoking Status: Current every day smoker alcohol intake: never substance use type: denies use current occupational status: employed Travel in the last 8 weeks: None household members: family housing: house ROS Obtained: Yes All systems reviewed & no additional complaints except as documented and Yes Systems reviewed as appropriate & no additional complaints except as documented Constitutional Constitutional: Reports system reviewed and no additional complaints, except as documented, Reports as per HPI, Reports body ache, Reports chills, Reports fever(s) and Reports headache(s) ENT Ears, Nose, Mouth, and Throat: Reports system reviewed and no additional complaints, except as documented, Reports as per HPI, Reports headache(s), Reports nasal congestion, Reports nasal discharge and Reports sore throat Cardiovascular Cardiovascular: Reports system reviewed and no additional complaints, except as documented and Reports as per HPI Respiratory Respiratory: Reports system reviewed and no additional complaints, except as documented and Reports as per HPI Gastrointestinal Gastrointestingal: Reports system reviewed and no additional complaints, except as documented and as per HPI Neurologic Neurologic: Reports headache(s) Physical Exam General General appearance: alert and in no apparent distress ENT ENT exam: Present mucous membranes moist Expanded ENT Exam Throat exam: Present tonsillar erythema Respiratory Respiratory exam: Present normal lung sounds bilaterally; Absent respiratory distress or wheezes Cardiovascular Cardiovascular exam: Present regular rate, normal rhythm and normal heart sounds Abdominal Exam Abdominal exam: Present soft and normal bowel sounds; Absent distention or tenderness Neurological Exam Neurological exam: Present alert, oriented X3 and normal gait Medical Decision Making Wesley Inquiry Pt receiving controlled substance: No Wesley was queried for this patient: No Vital Signs: 01/13/24 18:05 Temperature 98.6 F Temperature Source Oral Pulse Rate [Right Brachial] 80 Respiratory Rate 20 Blood Pressure [Right Arm] 137/100 H Blood Pressure Mean [Right Arm] 112 Blood Pressure Source [Right Arm] Automatic Cuff Blood Pressure Position [Right Arm] Sitting 02 Sat by Pulse Oximetry 100 Oxygen Delivery Method Room Air Lab Data Lab results reviewed: Yes I reviewed the patient's lab results.
[2024-01-13 18:33] LABS: UTC Influenza A Antigen Negative (Negative); UTC Influenza B Antigen Negative (Negative); UTC Strep Screen (Rapid) Positive (Negative)
[2024-01-13 18:51] VITALS: BP 137/100; PULSE 80; RESP 20; TEMP 37; O2SAT 100
== END 2024-01-13 19:00 | disposition home or self-care (01) ==
PROVIDERS: Emergency Provider Nurse Practitioner; PCP Family Medicine
DX: J02.0 Streptococcal pharyngitis (principal); R07.0 Pain in throat; R50.9 Fever, unspecified; R51.9 Headache, unspecified; R05.9 Cough, unspecified; R09.81 Nasal congestion; F17.210 Nicotine dependence, cigarettes, uncomplicated
CPT/HCPCS: 87804; 87880; 99212; 99214; G0463

== ENCOUNTER 2024-03-06 23:23 | Emergency (ER) | payer OTHER, SELFPAY ==
[2024-03-06 23:41] VITALS: BP 193/107; PULSE 111; RESP 20; TEMP 36.8; O2SAT 99; BMI 32.0
--- NOTE | 2024-03-06 23:42 | CT_ITS ---
PROCEDURE INFORMATION: Exam: CT Abdomen And Pelvis With Contrast Exam date and time: 03/07/2024 12:42 AM Age: 33 years old Clinical indication: Other: Llq pain; Additional info: Severe llq pain, heavy vag bleeding, diarrhea TECHNIQUE: Imaging protocol: Computed tomography of the abdomen and pelvis with contrast. Radiation optimization: All CT scans at this facility use at least one of these dose optimization techniques: automated exposure control; mA and/or kV adjustment per patient size (includes targeted exams where dose is matched to clinical indication); or iterative reconstruction. Contrast material: ISOVUE; Contrast volume: 75 ml; Contrast route: IV; COMPARISON: CR CXR CHEST(2 VIEWS-NOT PORTABLE) 10/30/2017 9:47 PM FINDINGS: Liver: Mild fatty infiltration. Gallbladder and bile ducts: Normal. No calcified stones. No ductal dilation. Pancreas: Normal. No ductal dilation. Spleen: Normal. No splenomegaly. Adrenal glands: Normal. No mass. Kidneys and ureters: Normal. No hydronephrosis. Stomach and bowel: Unremarkable. No obstruction. No mucosal thickening. Appendix: No evidence of appendicitis. Intraperitoneal space: Unremarkable. No free air. No significant fluid collection. Vasculature: Unremarkable. No abdominal aortic aneurysm. Lymph nodes: Reactive mesenteric/retroperitoneal lymph nodes without lymphadenopathy. Urinary bladder: Unremarkable as visualized. Reproductive: 2.8 x 2.2 cm right ovarian cyst. Ovaries not visualized. Bones/joints: Unremarkable. No acute fracture. Soft tissues: Unremarkable. IMPRESSION: 1. No acute findings. 2. Mild fatty liver infiltration. 3. Right ovarian cyst. 4. Reactive lymph nodes.
--- NOTE | 2024-03-06 23:43 | ED_ITS ---
Discharge Plan Disposition Patient Disposition: Home, Self-Care Condition: Good Prescriptions Prescriptions: New ketorolac 10 mg tablet 10 mg PO Q8H PRN (Reason: pain) 1 Days Qty: 20 0RF No Action escitalopram oxalate [Lexapro] 20 mg tablet 20 mg PO DAILY Qty: 90 3RF buspirone 10 mg tablet 10 mg PO TID PRN (Reason: anxiety) Qty: 90 3RF Prilosec OTC 20 mg tablet,delayed release (DR/EC) 20 mg PO DAILY Qty: 90 3RF etiqnpmmnnrqaea-aebpfwfct-WF [Bromfed DM] 2-30-10 mg/5 mL Syrup 5 ml PO Q6H PRN (Reason: Cough) Qty: 240 0RF ondansetron 4 mg Tablet,Disintegrating 4 mg PO Q8H PRN (Reason: Nausea) Qty: 12 0RF amoxicillin 500 mg capsule 500 mg PO BID 10 Days Qty: 20 0RF Referrals Follow up/Referrals: Emily Jain DO [Staff Physician] - See instructions Edgar Feliz DO [Primary Care Provider] - See instructions Lai Curtis MD [Staff Physician] - See instructions Marylu Barrera DO [Staff Physician] - See instructions Activity Restrictions/Add. Instructions Additional Instructions/Restrictions: You were evaluated in the emergency department today. 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 You may also take Tylenol every 4-6 hours as needed for pain. Follow-up closely with [facility]. We have provided you with information. You can call them on Saturday to schedule an appointment. Return to the emergency department for any new or worsening symptoms. Clinical Impressions Clinical Impression: Left lower quadrant abdominal pain, Cyst of right ovary, Menorrhagia, Fibroid, uterine Instructions Patient Instructions: DI for Ovarian Cyst, DI for Menorrhagia, DI for Acute Abdominal Pain Discharge ED Provider: Zofia Menendez General Adult HPI General Chief complaint: Abdominal Pain Stated complaint: endometriosis, excessive bleeding, pain left side Time Seen by Provider: 03/06/24 23:27 History of Present Illness HPI narrative: This patient is a 33-year-old female with a history of endometriosis, prior C- section, and prior tubal ligation presenting to the emergency department with concern for severe left lower quadrant abdominal pain and heavy vaginal bleeding. Patient reports that she started her period earlier today, and she was cooking dinner this evening when she started having an increase in bleeding. She states that she had just put in a tampon 1 hour prior, but the blood started running down her legs. She notes she has had to change a tampon every hour since then. She also notes she started having severe left lower quadrant abdominal pain after this, which radiates to her back and into her left leg. She also notes loose, watery diarrhea. No fevers, chills, nausea, vomiting, or other concerns. Related Data Previous Rx's Medication Instructions Recorded omeprazole magnesium 20 mg 20 mg PO DAILY GERD #90 tabs 06/26/23 tablet,delayed release (Prilosec OTC) buspirone 10 mg tablet 10 mg PO TID PRN anxiety #90 tabs 07/19/23 escitalopram oxalate 20 mg tablet 20 mg PO DAILY #90 tabs 07/19/23 (Lexapro) opwkblwwiobnyjq-rfztxtjwxtcwrpo-SJ 5 ml PO Q6H PRN Cough #240 mL 12/18/23 2 mg-30 mg-10 mg/5 mL oral syrup (Bromfed DM) ondansetron 4 mg disintegrating 4 mg PO Q8H PRN Nausea #12 tabs 12/18/23 tablet amoxicillin 500 mg capsule 500 mg PO BID 10 days #20 caps 01/13/24 ketorolac 10 mg tablet 10 mg PO Q8H PRN pain 1 day #20 03/07/24 tabs Allergies Allergy/AdvReac Type Severity Reaction Status Date / Time No Known Allergies Allergy Verified 12/18/23 18:43 [facility] Disclaimer: The information contained in this section may have been updated after the patient was seen, as this information can be updated by other users. Medical History Hypertension Manic depressive disorder Depression Anxiety UTI (urinary tract infection) Surgical History delivery delivered Social History Smoking Status: Current every day smoker alcohol intake: never substance use type: denies use current occupational status: employed Travel in the last 8 weeks: None household members: family housing: house ROS Obtained: Yes All systems reviewed & no additional complaints except as documented Physical Exam General General appearance: alert and in no apparent distress Head Head exam: atraumatic and normocephalic Eye Eye exam: Present normal appearance, PERRL and EOMI ENT ENT exam: Present normal exam, normal oropharynx, mucous membranes moist and normal external ear exam Neck Neck exam: Present normal inspection, full ROM and trachea midline; Absent tenderness Chest Chest inspection: Present normal inspection and symmetric chest wall rise; Absent tenderness Respiratory Respiratory exam: Present normal lung sounds bilaterally; Absent respiratory distress, wheezes, stridor or accessory muscle use Cardiovascular Cardiovascular exam: Present normal rhythm and tachycardia Abdominal Exam Abdominal exam: Present soft, tenderness (Left lower quadrant/suprapubic) and normal bowel sounds; Absent distention, guarding, rebound or rigidity Extremities Exam Extremities exam: Present normal inspection, full ROM and normal capillary refill; Absent tenderness or edema Back Exam Back exam: Present normal inspection and full ROM; Absent tenderness Neurological Exam Neurological exam: Present alert, oriented X3, CN II-XII intact and normal gait; Absent motor sensory deficit Psychiatric Psychiatric exam: Present normal affect and normal mood Skin Skin exam: Present warm and dry Medical Decision Making Medical Records Medical records reviewed: Yes I reviewed the patient's medical records. Wesley Inquiry Pt receiving controlled substance: No Vital Signs: 03/06/24 23:41 03/07/24 00:52 03/07/24 01:00 Temperature 98.2 F Temperature Source Oral Pulse Rate 85 99 H Pulse Rate [Left Radial] 111 H Respiratory Rate 20 Blood Pressure 130/86 136/95 H Blood Pressure [Right Arm] 193/107 H Blood Pressure Mean 97 108 Blood Pressure Mean [Right Arm] 135 Blood Pressure Source [Right Arm] Automatic Cuff Blood Pressure Position [Right Arm] Supine 02 Sat by Pulse Oximetry 99 98 96 Oxygen Delivery Method Room Air Room Air Room Air 03/07/24 01:30 03/07/24 02:27 03/07/24 02:31 Temperature Temperature Source Pulse Rate 102 H 100 H 95 H Pulse Rate [Left Radial] Respiratory Rate Blood Pressure 140/97 H 148/104 H 165/111 H Blood Pressure [Right Arm] Blood Pressure Mean 106 120 122 Blood Pressure Mean [Right Arm] Blood Pressure Source [Right Arm] Blood Pressure Position [Right Arm] 02 Sat by Pulse Oximetry 96 98 98 Oxygen Delivery Method Room Air Room Air Room Air Lab Data Lab results reviewed: Yes I reviewed the patient's lab results. Lab Results 03/07/24 00:05: Urine Color [place], Urine Appearance Cloudy, Urine pH 5.5, Ur Specific [place] >= 1.030, Urine Protein 1+, Urine Glucose (UA) Negative, Urine Ketones Trace, Urine Blood 3+, Urine Nitrate Negative, Urine Bilirubin 1+ A, Urine Urobilinogen 0.2, Ur Leukocyte Esterase Trace, Urine RBC Tntc, Urine WBC Occasional, Ur Squamous Epith Cells Occasional, Urine Bacteria 1+ 03/07/24 00:17: WBC 8.6, RBC 4.85, Hgb 14.9, Hct 45.5, MCV 93.8, MCH 30.6, MCHC 32.7, RDW 12.8, Plt Count 213, MPV 9.3, Neut % (Auto) 67.0, Lymph % (Auto) 25.5, [place] % (Auto) 4.1, Eos % (Auto) 1.9, Baso % (Auto) 1.4, Neut # (Auto) 5.8, Lymph # (Auto) 2.2, [place] # (Auto) 0.4, Eos # (Auto) 0.2, Baso # (Auto) 0.1, Sodium 140, Potassium 3.6, Chloride 109 H, Carbon Dioxide 25, Anion Gap 9.6, BUN 10, Creatinine 0.60, Estimated Creat Clear 167, Estimated GFR 115, Est GFR ( Amer) 139, Glucose 115 H, Calcium 9.2, Total Bilirubin 0.3, AST 28, ALT 26, Alkaline Phosphatase 82, Total Protein 7.0, Albumin 4.2, Globulin 2.8, Albumin/Globulin Ratio 1.5, Serum HCG, Qual Negative 03/07/24 00:17 03/07/24 00:17 Orders (Tests/Meds): ED MEDICATIONS Generic Name Dose Route Start Last Admin Trade Name Freq PRN Reason Stop Dose Admin Sodium Chloride 10 ml 03/07/24 00:49 03/07/24 00:50 Sodium Chloride 0.9% 10ml Syr (Rad Only) IV 04/06/24 00:48 10 ml NEEDED PRN Administration Maintain IV Site Discontinued Medications Generic Name Dose Route Start Last Admin Trade Name Freq PRN Reason Stop Dose Admin Acetaminophen 1,000 mg 03/06/24 23:42 03/07/24 00:02 Acetaminophen 1,000mg/100ml Vial IV 03/06/24 23:43 1,000 mg ONCE ONE Administration Lactated Ringer's 1,000 mls @ 999 mls/hr 03/06/24 23:42 03/07/24 00:03 Lactated Ringer's 1000 Ml Bag IV 03/07/24 00:42 999 mls/hr .Q1H1M ONE Administration Iopamidol 75 ml 03/07/24 00:49 03/07/24 00:50 Iopamidol-370 (76%);100ml Bottle IV 03/07/24 00:50 75 ml ONCE ONE Administration Ketorolac Tromethamine 15 mg 03/06/24 23:42 03/07/24 00:02 Ketorolac 30mg/Ml Vial IV 03/06/24 23:43 15 mg ONCE ONE Administration ORDERS Category Date Time Status CT abdomen pelvis w con Stat Cat Scan 03/06/24 23:42 Completed US transvaginal Stat Exams 03/07/24 01:35 Completed CMP [Comprehensive Metabolic Panel] Stat Lab 03/06/24 23:37 Completed Complete Blood Count Auto Diff Stat Lab 03/06/24 23:37 Completed Serum [HCG Qualitative, Serum] Stat Lab 03/06/24 23:37 Completed UA [Urinalysis and Microscopic] Stat Lab 03/07/24 00:05 Completed Medical Decision Narrative: In summary, this patient is a 33-year-old female presenting to the Emergency Department for evaluation of vaginal bleeding and left lower quadrant abdominal pain. Differential diagnoses considered include but are not limited to endometriosis pain, ovarian cyst, ovarian torsion, diverticulitis, colitis, cystitis, ureterolithiasis. Ruling out the most morbid conditions drove assessment. On exam, the patient is uncomfortable appearing and is slightly tachycardic and hypertensive. She has left lower quadrant abdominal tenderness but no rebound or guarding. Workup included CBC, CMP, urinalysis, test, and CT abdomen pelvis with IV contrast. She was given a bolus of IV fluids as well as IV Toradol and acetaminophen for symptomatic improvement. I independently interpreted CT scan prior to the radiologist read and noted right ovarian cyst, but I did not appreciate anything on the left. Please see their read for final interpretation. Labs were obtained that demonstrated no significantly concerning abnormalities. Urine is grossly contaminated with blood, but patient does not have any urinary symptoms. On reassessment, patient had great improvement after administration of IV Toradol and acetaminophen. She is resting comfortably with no persistent pain, no tenderness, and reassuring vital signs on cardiac telemetry. Given this, doubt ovarian torsion, however transvaginal OB ultrasound was ordered to further evaluate. Per the hemodialysis technician after interactive discussion, this did demonstrate right ovarian cyst with good flow to the right ovary. She also has dopplerable flow to the left ovary without obvious large cyst. She did note the flow was slightly decreased to the left ovary, but it is there. I had an interactive discussion with Dr. Curtis with OB regarding findings and disposition plan. Given patient is not having pain at this time and is resting comfortably with benign exam, he is in agreement that ovarian torsion is unlikely. Given reassuring workup and exam, he advises that he agrees that the patient is likely appropriate for discharge home with outpatient follow-up and a prescription for Toradol for anti-inflammatory. Patient is agreeable with this plan. She does not have OB, so I gave her information for referrals. She was given prescription for Toradol, instructions for close a patient follow-up, and strict return precautions should her pain recur or get worse. She was discharged after all questions were answered. Critical Care Critical Care Time Critical Care Time: No
[2024-03-07] MEDS: KETOROLAC 30MG/ML VIAL 15 MG IV (00:02)
[2024-03-07] MEDS: ACETAMINOPHEN 1,000MG/100ML VIAL 1000 MG IV (00:02)
[2024-03-07] MEDS: LACTATED RINGERS 1000ML 1,000 ML 999 ML IV (00:03)
--- NOTE | 2024-03-07 00:25 | PC.NURSE ---
urine sent to lab
[2024-03-07 00:29] LABS: Basophils # 0.1 K/mm3 (0-0.2); Basophils % 1.4 % (0.1-2.0); Eosinophils # 0.2 K/mm3 (0.0-0.4); Eosinophils % 1.9 % (0.1-12.0); Hematocrit 45.5 % (37.0-47.0); Hemoglobin 14.9 g/dL (12.2-16.2); Lymphocytes # 2.2 K/mm3 (0.7-4.5); Lymphocytes % 25.5 % (10-50); Mean Corpuscular HGB Conc 32.7 g/dL (31.8-35.4); Mean Corpuscular Hemoglobin 30.6 pg (27.0-31.2); Mean Corpuscular Volume 93.8 fl (81-99); Mean Platelet Volume 9.3 fl (7.4-10.4); Monocytes # 0.4 K/mm3 (0.1-1.0); Monocytes % 4.1 % (1.7-9.3); Neutrophils # 5.8 K/mm3 (1.8-7.8); Platelet Count 213 K/mm3 (142-424); Red Blood Count 4.85 M/mm3 (4.20-5.40); Red Cell Distribution Width 12.8 % (11.5-17.5); White Blood Count 8.6 K/mm3 (4.8-10.8)
[2024-03-07 00:36] LABS: Alanine Aminotransferase 26 U/L (12-78); Albumin Level 4.2 g/dl (3.5-5.0); Albumin/Globulin Ratio 1.5 (1.1-1.8); Alkaline Phosphatase 82 U/L (38-126); Anion Gap 9.6 mEq/L (5-15); Aspartate Amino Transferase 28 U/L (14-36); Bilirubin,Total 0.3 mg/dl (0.2-1.3); Blood Urea Nitrogen 10 mg/dl (7-17); Calcium 9.2 mg/dl (8.4-10.2); Carbon Dioxide 25 mmol/L (22.0-30.0); Chloride 109 mmol/L (98-107); Creatinine Clearance Estimated 167 mL/min (50-200); Estimated Glomerular Filt Rate 115 ml/min (>60); GFR (African American) 139 ML/MIN (>60); Globulin 2.8 g/dL (1.3-3.2); Glucose 115 mg/dl (74-100); Potassium 3.6 mmoL/L (3.5-5.1); Sodium 140 mmol/L (136-145)
[2024-03-07 00:37] LABS: Appearance,Urine CLOUDY (Clear); Blood, Urine 3+ (Negative); Color,Urine ORANGE (Yellow); Glucose,Urine (UA) Negative (Negative); Ketones,Urine TRACE (Negative); Leukocyte Esterase,Urine TRACE (Negative); Microscopic, Urine URINE MICROSCOPIC (MICROSCOPIC); Nitrate,Urine Negative (Negative); PH,Urine 5.5 (5.0-8.5); Protein,Urine 1+ (Negative); Specific Gravity, Urine >= 1.030 (1.005-1.030); Urobilinogen,Urine 0.2 EU/dl (0.2)
[2024-03-07 00:45] LABS: Bilirubin,Urine 1+ (Negative)
[2024-03-07 00:49] LABS: Bacteria,Urine 1+ /lpf; RBC,Urine TNTC #/hpf (0-3); Squamous Epithelial Cell,Urine Occasional #/hpf (0-5); WBC,Urine Occasional #/hpf (0-3)
[2024-03-07 00:49] LABS: HCG Qualitative, Serum Negative (Negative)
[2024-03-07] MEDS: SODIUM CHLORIDE 0.9% 10ML SYR (RAD ONLY) 10 ML IV (00:50)
[2024-03-07] MEDS: IOPAMIDOL-370 (76%);100ML BOTTLE 75 ML IV (00:50)
[2024-03-07 00:52] VITALS: BP 130/86; PULSE 85; O2SAT 98
[2024-03-07 01:00] VITALS: BP 136/95; PULSE 99; O2SAT 96
[2024-03-07 01:30] VITALS: BP 140/97; PULSE 102; O2SAT 96
--- NOTE | 2024-03-07 01:35 | US_ITS ---
PROCEDURE INFORMATION: Exam: US Pelvis, Transvaginal Exam date and time: 03/07/2024 1:40 AM Age: 33 years old Clinical indication: Pelvic pain; Prior surgery; Surgery date: 6+ months; Surgery type: Csection x's 3 -- btl; Additional info: Ovarian cyst, pelvic pain LABS AND CLINICAL REPORTS: Last menstrual period start date: 03/06/2024 TECHNIQUE: Imaging protocol: Real-time transvaginal pelvic ultrasound with image documentation. Transvaginal imaging was used for better evaluation of the endometrium, adnexa, and/or cervix. COMPARISON: CT ABDOMEN PELVIS W CON 03/07/2024 12:42 AM FINDINGS: Uterus: Uterus measures 9.38 cm x 5.38 cm x 4.81 cm. Endometrial thickness is 1.3 cm. 1.6 cm well-circumscribed likely hypoechoic lesion in the cervix likely related to fibroid. Right ovary/adnexa: Right ovary measures 3.35 cm x 3.16 cm x 3.13 cm. Right ovarian volume is 17.35 mL. Simple appearing 3.4 cm right ovarian cyst. Positive blood flow. Left ovary/adnexa: Left ovary measures 2.81 cm x 2.41 cm x 2.52 cm. Left ovarian volume is 8.94 mL. Positive blood flow. Intraperitoneal space: No free fluid. IMPRESSION: 1. No acute findings. 2. 3.4 cm right ovarian cyst for which no further follow-up is necessary. 3. Likely cervical fibroid.
--- NOTE | 2024-03-07 01:41 | PC.NURSE ---
patient to US
[2024-03-07 02:27] VITALS: BP 148/104; PULSE 100; O2SAT 98
[2024-03-07 02:31] VITALS: BP 165/111; PULSE 95; O2SAT 98
[2024-03-07 03:41] VITALS: BP 165/111; PULSE 96; RESP 16; TEMP 36.7; O2SAT 96
== END 2024-03-07 03:56 | disposition home or self-care (01) ==
PROVIDERS: Emergency Provider Emergency Medicine; PCP Family Medicine
DX: R10.32 Left lower quadrant pain (principal); N83.201 Unspecified ovarian cyst, right side; D25.9 Leiomyoma of uterus, unspecified; N92.0 Excessive and frequent menstruation with regular cycle; F17.210 Nicotine dependence, cigarettes, uncomplicated
CPT/HCPCS: 74177; 76830; 80053; 81001; 84703; 85025; 96361; 96374; 96375; 99285; J0131; Q9967

== ENCOUNTER 2024-04-20 09:50 | Outpatient (CLI) | payer OTHER, SELFPAY ==
[2024-04-20 10:20] LABS: Basophils # 0.1 K/mm3 (0-0.2); Basophils % 0.5 % (0.1-2.0); Eosinophils # 0.1 K/mm3 (0.0-0.4); Eosinophils % 1.2 % (0.1-12.0); Hemoglobin 14.6 g/dL (12.2-16.2); Lymphocytes # 1.6 K/mm3 (0.7-4.5); Lymphocytes % 13.8 % (10-50); Mean Corpuscular HGB Conc 33.3 g/dL (31.8-35.4); Mean Corpuscular Hemoglobin 30.9 pg (27.0-31.2); Mean Corpuscular Volume 92.8 fl (81-99); Mean Platelet Volume 9.4 fl (7.4-10.4); Monocytes # 0.5 K/mm3 (0.1-1.0); Neutrophils # 9.3 K/mm3 (1.8-7.8); Neutrophils % 80.5 % (37.0-80.0); Platelet Count 201 K/mm3 (142-424); Red Blood Count 4.75 M/mm3 (4.20-5.40); White Blood Count 11.6 K/mm3 (4.8-10.8)
[2024-04-20 10:59] LABS: Alanine Aminotransferase 29 U/L (12-78); Albumin Level 3.9 g/dl (3.5-5.0); Albumin/Globulin Ratio 1.5 (1.1-1.8); Alkaline Phosphatase 71 U/L (38-126); Aspartate Amino Transferase 23 U/L (14-36); Bilirubin,Total 0.4 mg/dl (0.2-1.3); Blood Urea Nitrogen 9 mg/dl (7-17); Calcium 9.1 mg/dl (8.4-10.2); Carbon Dioxide 27 mmol/L (22.0-30.0); Chloride 104 mmol/L (98-107); Estimated Glomerular Filt Rate 115 ml/min (>60); GFR (African American) 139 ML/MIN (>60); Globulin 2.6 g/dL (1.3-3.2); Glucose 95 mg/dl (74-100); Sodium 138 mmol/L (136-145); Total Protein,Serum 6.5 g/dl (6.3-8.2)
[2024-04-20 11:15] LABS: HCG,Quantitative < 2 mIU/ml (0-5.42)
[2024-04-20 13:55] LABS: Amphetamine/Metha Screen,Urine Negative ng/ml (<1000); Barbiturates Screen,Urine Negative ng/ml (<200)
[2024-04-20 13:56] LABS: Benzodiazepines Screen,Urine Negative ng/ml (<200)
[2024-04-20 13:57] LABS: Cannabinoid Screen,Urine Negative ng/ml (<50); Cocaine Screen,Urine Negative ng/ml (<300)
[2024-04-20 13:58] LABS: Methadone Screen,Urine Negative ng/ml (<300)
[2024-04-20 13:59] LABS: Opiate Screen,Urine Negative ng/ml (<300); Phencyclidine Screen,Urine Negative ng/ml (<25)
== END 2024-04-20 23:59 | disposition home or self-care (01) ==
LOC: LAB 09:51
PROVIDERS: PCP Family Medicine; Visit Provider Nurse Practitioner Obstetrics & Gynecology
DX: Z01.818 Encounter for other preprocedural examination (principal); D25.1 Intramural leiomyoma of uterus
CPT/HCPCS: 36415; 80053; 80307; 84702; 85025

== ENCOUNTER 2024-04-23 07:10 | Day surgery (SDC) | payer OTHER, SELFPAY ==
[2024-04-23] VITALS (11 sets, daily range): BP systolic 138–161; BP diastolic 79–107; PULSE 65–87; RESP 10–18; TEMP 36.1–36.7; O2SAT 90–99; BMI 33.6
[2024-04-23] MEDS: LACTATED RINGERS 1000ML 1,000 ML 25 ML IV (07:47)
[2024-04-23] MEDS: CEFAZOLIN 2GM VIAL 2 GM (08:40)
[2024-04-23] MEDS: ROPIVACAINE 0.5% 30ML VIAL 150 MG (08:50)
--- NOTE | 2024-04-23 09:05 | P.OP_ITS ---
Date of procedure: 04/23/24 Pre-op Diagnosis:: Menorrhagia Post-op Diagnosis:: Menorrhagia Procedure performed:: Hysteroscopy, dilation and curettage, NovaSure ablation Surgeon:: Lai Curtis MD PHARMACY STOCK CLERK:: Ghislaine hCimarina Anesthesia: LMA Estimated blood loss (mL): 50 Clinical Note:: She is a 33-year-old lady who complains of extremely heavy periods. As result of that she was offered hysteroscopy, D&C and NovaSure. Operative findings:: She had an anteverted somewhat bulky uterus that sounded to 9 cm. The endometrial cavity appeared normal. Operative note:: She was taken to the operating room where LMA anesthesia was found be adequate. She was prepped and draped in the normal sterile fashion in the lithotomy position. A weighted speculum was placed in the vagina and the anterior lip of the cervix was grasped with a tenaculum. The cervix was then dilated to approximately 6 mm. I then inserted a hysteroscope into the uterine cavity and the findings were as previously dictated. I then performed a gentle curettage with a medium curette. I then sounded the uterus and determine the length of the uterus. I then inserted the NovaSure device and determine the width of the endometrial cavity. The length of the cavity was 6 cm and the width was 4.2 cm. This was placed into the NovaSure device. I then ran the device through its program. I further inspected the endometrial cavity and was found to be completely charred. I then injected 30 cc of 0.5% ropivacaine at the 3:00, 5:00, 7:00, and 9:00 positions of the cervix. She tolerated procedure well and was taken to the recovery room in excellent condition. All sponge and instrument counts were correct. The estimated blood loss was less than 50 cc. Condition: stable Disposition: PACU Specimens:: Endometrial curettings Complications:: None
--- NOTE | 2024-04-23 09:08 | EXP.ANES.CKL ---
[facility] Disclaimer: The information contained in this section may have been updated after the patient was seen, as this information can be updated by other users. Medical History (Updated 04/23/24 @ 07:38 by Marissa Delarosa RN) History of COVID-19 History of gastroesophageal reflux (GERD) Hypertension Manic depressive disorder Depression Anxiety UTI (urinary tract infection) Surgical History (Updated 04/23/24 @ 07:38 by Marissa Delarosa RN) H/O tubal ligation delivery delivered Family History Other Anemia Asthma Cancer Coronary artery disease Diabetes FHx: mental illness Heart attack Hyperlipidemia Hypertension Social History (Updated 04/23/24 @ 07:38 by Marissa Delarosa RN) Smoking Status: Current every day smoker alcohol intake: never substance use type: denies use current occupational status: unemployed Travel in the last 8 weeks: None household members: family housing: house [facility] Anesthesia Checklist Patient Identification Patient Identification: Arm Band and Verbal (Name & ) Structural Data Admitted From: Home Planned Operative Procedure/s: Hysteroscopy, D&C, Novasure ablation Consent for Planned Operative Procedure(s) Verified: Yes Verified Documents: Surgical Consent and History and Physical NPO Status Verified Time NPO: 23:30 Chart Verification Results Verified: CBC, BMP and HCG Additional verifications Patient : No Anesthesia Reactions: No Hx Blood Transfusions: Yes Blood Transfusion Reaction: No Cardiovascular Assessment Heart Sounds: S1 & S2 Pulse Rhythm: Irregular Peripheral Edema: No Airway Assessment Mallampati Score:: Class II C-Spine Mobility Assessed: Yes (FROM) TMJ Mobility Assessed: Yes Dentition: Poor Dentition (Top front teeth broken off at gumline. Many missing teeth. Nothing loose per pt.) Neurological Assessment Level of Consciousness: Awake, Alert, Appropriate and Follows Commands Hx Seizures: No Numbness or tingling in extremities: No Anesthesia Plan Anesthesia Risk discussed: Yes Anesthesia Plan: Verified ASA Class: III Anesthesia Type: General
--- NOTE | 2024-04-23 09:10 | P.PNANES_ITS ---
[facility] Anesthesia Record Part I Anesthesia Record I Intake, IV Amount: 600 Hydration: Adequate Estimated blood loss (mL): 10 Urine output (mL): 0 Blood Products used (#): none Blood Pressure: 139/85 SaO2: 91 Pulse Rate: 81 Airway Patency: Patent Respiratory Rate: 16 Temperature: 97.0 F Patient is:: Drowsy, Oral/Nasal airway (10.0 oral airway) and Stable Stable to PACU at:: 09:09
--- NOTE | 2024-04-23 10:02 | EXP.ANES.II ---
[facility] Anesthesia Record Part II Anesthesia Record Part II Discharge Time: 09:24 Destination: Surgical Day Care (OP Surgery) PACU nurse assessment reviewed?: Yes Patient Condition:: Good Anesthesia Complications:: None Swallowing reflex intact?: Yes Airway Patency: Patent Cyanosis?: No Blood Pressure: 161/97 SaO2: 99 Respiratory Rate: 14 Pulse Rate: 85 Temperature: 97.0 F Mental Status: Alert & Oriented Pain level:: 0 Nausea and/or vomitting:: None Intake, IV Amount: 600 Hydration: Adequate
== END 2024-04-23 10:15 | disposition home or self-care (01) ==
PROVIDERS: PCP Family Medicine; Visit Provider Nurse Practitioner Obstetrics & Gynecology
PROC: 0U5B8ZZ Destruction of Endometrium, Via Natural or Artificial Opening Endoscopic (ICD-10-PCS; CPT 58563; principal; 2024-04-23 08:45)
DX: N92.0 Excessive and frequent menstruation with regular cycle (principal)
CPT/HCPCS: 58563; 96374; J0690; J2405